=== PATIENT | female | born 1980 | race Two or more races ===

== ENCOUNTER 2020-04-16 06:23 | Day surgery (SDC) | payer OTHER ==
[~2020-04-16 06:23] MED LIST: AVAPRO300 MG PO; CELEBREX50 MG PO; LYRICA20 MG/1 ML PO; METFORMIN HCL500 M3 PO; VERAPAMIL HCL40 MG PO
[2020-04-16] MEDS ORDERED: PERCOCET 5-3251 EACH PO (10:35)
== END 2020-04-16 13:15 | disposition home or self-care (01) ==
LOC: CIR.AMB 06:23
PROVIDERS: ATTEND Obstetrics & Gynecology Gynecology
DX: D06.7 Carcinoma in situ of other parts of cervix (principal); Z20.822 Contact with and (suspected) exposure to COVID-19

== ENCOUNTER 2020-07-11 09:00 | Inpatient (IN) | payer OTHER ==
[~2020-07-11] VITALS: Ht 160 cm; Wt 90.7 kg
[~2020-07-11 09:00] MED LIST changes: +PERCOCET 5-3251 EACH PO
[2020-07-16] MEDS ORDERED: CELECOXIB200 MG (10:03)
[2020-07-16] MEDS ORDERED: RESTORIL30 MG (10:03)
[2020-07-16] MEDS ORDERED: PREGABALIN75 MG (10:03)
[2020-07-16] MEDS ORDERED: MOMETASONE FURO15 G2 (10:03)
[2020-07-16] MEDS ORDERED: FLUOXETINE HCL20 MG (10:03)
[2020-07-18] MEDS ORDERED: IBU800 MG PO (07:53)
[2020-07-18] MEDS ORDERED: OXYC1TAB9 PO (07:53)
[2020-07-18] MEDS ORDERED: TANDEM PLUS CA1 EACH PO (07:55)
== END 2020-07-18 09:26 | disposition home or self-care (01) | DRG 741 ==
LOC: OB/GYN 07-16 06:24 → O/R 07-16 06:24 → OB/GYN 07-16 09:00
PROVIDERS: ADMIT Obstetrics & Gynecology Gynecology; ATTEND Obstetrics & Gynecology Gynecology
PROC: 0UT90ZZ Resection of Uterus, Open Approach (ICD-10-PCS; principal; 2020-07-16)
DX: C55 Malignant neoplasm of uterus, part unspecified (principal); N87.9 Dysplasia of cervix uteri, unspecified; I10 Essential (primary) hypertension

== ENCOUNTER 2020-10-18 07:22 | Day surgery (SDC) | payer OTHER ==
[~2020-10-18 07:22] MED LIST changes: +CELECOXIB200 MG; +FLUOXETINE HCL20 MG; +GLIPIZIDE XL10 MG PO; +IBU800 MG PO; +MOMETASONE FURO15 G2; +OXYC1TAB9 PO; +PREGABALIN75 MG; +RESTORIL30 MG; +TANDEM PLUS CA1 EACH PO
== END 2020-10-18 19:00 | disposition home or self-care (01) ==
LOC: CIR.AMB 07:22
PROVIDERS: ATTEND Obstetrics & Gynecology Gynecologic Oncology
DX: C53.0 Malignant neoplasm of endocervix (principal); Z20.822 Contact with and (suspected) exposure to COVID-19